=== PATIENT | female | born 1995 | race Caucasian/White ===

== ENCOUNTER 2018-05-02 20:09 | Emergency (ER) | payer BC, OTHER ==
[2018-05-02] MEDS: ACETAMINOPHEN 325 MG TAB PO (22:42)
[2018-05-02] MEDS: DIPHTH/TET/ACEL PERTUSS (ADULT) 0.5 ML VIAL IM* (22:45)
== END 2018-05-02 23:47 | disposition home or self-care (01) ==
LOC: FTE 20:09
DX: S01.511A Laceration without foreign body of lip, initial encounter (principal); F17.210 Nicotine dependence, cigarettes, uncomplicated; W54.0XXA Bitten by dog, initial encounter; Y92.9 Unspecified place or not applicable; Z23 Encounter for immunization
CPT/HCPCS: 12011; 90471; 90715; 99283-25

== ENCOUNTER 2018-05-07 22:41 | Emergency (ER) | payer BC | END 2018-05-07 23:41 | disposition home or self-care (01) | LOC: FTE 22:41 | DX: Z48.02 Encounter for removal of sutures (principal); F17.210 Nicotine dependence, cigarettes, uncomplicated; R40.2412 Glasgow coma scale score 13-15, at arrival to emergency department | CPT/HCPCS: 99281 ==